=== PATIENT | female | born 1995 | race Hispanic/Latino ===

== ENCOUNTER 2018-08-25 02:29 | Emergency (ER) | payer SELFPAY ==
[2018-08-25] MEDS ORDERED: Sodium Chloride 0.9% 1,000 ML IV ONE ×2 (03:02)
--- NOTE | 2018-08-25 03:04 | C.PDOC ---
History Of Present Illness 23 year old female with PMHx of GERD presents to the ED complaining of new onset of vomiting one hour prior to arrival. Reports she had 5 episodes of vomiting. Denies current . Denies any diarrhea, abdominal pain, fever, chills, back pain, chest pain, shortness of breath, urinary symptoms, or any other complaints. Chief Complaint (Nursing): Abdominal Pain History Per: Patient History/Exam Limitations: no limitations Onset/Duration Of Symptoms: Hrs Current Symptoms Are (Timing): Still Present Associated Symptoms: Vomiting. denies: Fever, Chills, Diarrhea, Back Pain, Chest Pain, Urinary Symptoms Past Medical History Reviewed: Historical Data, Nursing Documentation, Vital Signs Vital Signs: Last Vital Signs Temp 97.5 F L 08/25/18 02:48 Pulse 101 H 08/25/18 02:48 Resp 20 08/25/18 02:48 BP 114/75 08/25/18 02:48 Pulse Ox 100 08/25/18 02:48 - Medical History PMH: GERD Denies: Chronic Kidney Disease Surgical History: No Surg Hx Family History: States: No Known Family Hx - Social History Hx Alcohol Use: No Hx Substance Use: No - Immunization History Hx Tetanus Toxoid Vaccination: No Hx Influenza Vaccination: No Hx Pneumococcal Vaccination: No Review Of Systems Except As Marked, All Systems Reviewed And Found Negative. Constitutional: Negative for: Fever, Chills Cardiovascular: Negative for: Chest Pain Respiratory: Negative for: Shortness of Breath Gastrointestinal: Positive for: Vomiting. Negative for: Nausea, Abdominal Pain, Diarrhea Genitourinary: Negative for: Dysuria, Hematuria Musculoskeletal: Negative for: Back Pain Physical Exam - Physical Exam Appears: Non-toxic, Other (mild distress) Skin: Warm, Dry Head: Normacephalic Eye(s): bilateral: Normal Inspection Nose: Normal Oral Mucosa: Moist Neck: Supple Chest: Symmetrical Cardiovascular: Rhythm Regular Respiratory: Normal Breath Sounds, No Rales, No Rhonchi, No Wheezing Gastrointestinal/Abdominal: Bowel Sounds (normal), Soft, Tenderness (epigastric ), No Distention, No Guarding, No Rebound, No Other (rigidity ) Back: No CVA Tenderness Extremity: Bilateral: Atraumatic Neurological/Psych: Oriented x3, Normal Speech Gait: Steady ED Course And Treatment - Laboratory Results Result Diagrams: 08/25/18 03:09 08/25/18 03:09 O2 Sat by Pulse Oximetry: 100 Medical Decision Making Medical Decision Making: Plan - CT ABD/PEL - Zofran 4mg IVP - Protonix 40mg IVP - IV fluids - UA - Bloodwork Disposition Counseled Patient/Family Regarding: Diagnosis - Disposition Referrals: [facility] [Outside] Disposition: HOME/ ROUTINE Disposition Time: 05:17 Condition: STABLE Prescriptions: Ondansetron ODT [Zofran ODT] 1 odt PO BID PRN #6 odt PRN Reason: Nausea/Vomiting Pantoprazole Sodium [Protonix] 40 mg PO DAILY #14 ect Sucralfate [Carafate] 1 gm PO BID #20 tablet Instructions: Gastritis, Acid Reflux (Gastroesophageal Reflux Disease), Adult (DC), [place] Diet Forms: [facility] (Pashto) - POA Present On Arrival: None - Clinical Impression Clinical Impression: GERD (gastroesophageal reflux disease), Vomiting, Abdominal pain - Scribe Statement The provider has reviewed the documentation as recorded by the Carolina Ball All medical record entries made by the Carolina were at my direction and personally dictated by me. I have reviewed the chart and agree that the record accurately reflects my personal performance of the history, physical exam, medical decision making, and the department course for this patient. I have also personally directed, reviewed, and agree with the discharge instructions and disposition.
[2018-08-25 03:14] LABS: BASO % 0.1 % (0.0-2.0); EOS # 0.2 K/uL (0.0-0.7); EOS % 1.5 % (0.0-4.0); HEMOGLOBIN 13.4 g/dL (11.0-16.0); LYMPH % 7.2 % (20.0-40.0); MEAN CELL VOLUME 87.3 fL (81.0-99.0); MEAN CORPUSCULAR HEMOGLOBIN 28.2 pg (27.0-31.0); MEAN CORPUSCULAR HGB CONC 32.3 g/dL (33.0-37.0); MEAN PLATELET VOLUME 10.4 fL (7.2-11.7); MONO # 0.5 K/uL (0.0-0.8); MONO % 3.9 % (0.0-10.0); NEUT # 11.6 K/uL (1.8-7.0); NEUT % 87.3 % (50.0-75.0); PLATELET COUNT 280 K/uL (130-400); RBC 4.74 Mil/uL (3.80-5.20); RED CELL DISTRIBUTION WIDTH 13.2 % (11.5-14.5); WHITE BLOOD COUNT 13.3 K/uL (4.8-10.8)
[2018-08-25 03:19] LABS: SQUAMOUS EPITHIAL 2 /hpf (0-5); URINE BACTERIA RARE (<OCC); URINE BILIRUBIN NEGATIVE (NEGATIVE); URINE BLOOD 1+ (NEGATIVE); URINE CLARITY Clear (Clear); URINE COLOR Yellow (YELLOW); URINE GLUCOSE (UA) NORMAL (Normal); URINE LEUKOCYTE ESTERASE NEG Leu/uL (Negative); URINE PROTEIN NEGATIVE (NEGATIVE); URINE UROBILINOGEN NORMAL mg/dL (0.2-1.0)
[2018-08-25 03:20] LABS: HCG,QUALITATIVE URINE NEGATIVE (NEGATIVE)
[2018-08-25 03:27] LABS: ALB/GLOB RATIO 1.6 (1.0-2.1); ALBUMIN 4.5 g/dL (3.5-5.0); ALT/SGPT 24 U/L (9-52); AST/SGOT 16 U/L (14-36); BLOOD UREA NITROGEN 12 mg/dL (7-17); CALCIUM 8.8 mg/dl (8.6-10.4); GFR NON-AFRICAN AMERICAN > 60; LIPASE 82 U/L (23-300)
[2018-08-25 03:39] LABS: BANDS 1 % (0-2); EOSINOPHIL 1 % (0-4); LYMPHOCYTE 9 % (20-40); MONOCYTE 4 % (0-10); NEUTROPHIL 85 % (50-75); PLATELET ESTIMATE NORMAL (NORMAL); TOTAL CELLS COUNTED 100
[2018-08-25 05:35] VITALS: BP 90/60; PULSE 94; RESP 22; TEMP 98.8; O2SAT 97
--- NOTE | 2018-08-25 09:52 | CT ---
Date of service: 08/25/2018 PROCEDURE: CT Abdomen and Pelvis with intravenous contrast HISTORY: Abdominal pain. Vomiting. COMPARISON: None. TECHNIQUE: Multiple contiguous axial images were performed through the abdomen and pelvis with the use of intravenous contrast. Subsequently, sagittal and coronal reformatted images were obtained. Radiation dose: Total exam DLP = 545.35 mGy-cm. This CT exam was performed using one or more of the following dose reduction techniques: Automated exposure control, adjustment of the mA and/or kV according to patient size, and/or use of iterative reconstruction technique. FINDINGS: LOWER THORAX: Mild atelectasis at the lung bases. LIVER: Grossly preserved. GALLBLADDER AND BILE DUCTS: Unremarkable. PANCREAS: Unremarkable. No gross lesion or ductal dilatation. SPLEEN: Unremarkable. ADRENALS: Unremarkable. No mass. KIDNEYS AND URETERS: Unremarkable. No hydronephrosis. No solid mass. VASCULATURE: Unremarkable. No aortic aneurysm. No aortic atherosclerotic calcification or mural plaque present. BOWEL: Distended and thickened enhancing bowel loops seen within the upper and mid abdomen suggestive for an enteritis. Fluid-filled and distended stomach. Moderate to severe fecal retention in the colon APPENDIX: Partially imaged. Grossly preserved. PERITONEUM: Unremarkable. No free fluid. No free air. LYMPH NODES: Few shotty para-aortic and inguinal lymph nodes. Few shotty mesenteric lymph nodes. BLADDER: Unremarkable. REPRODUCTIVE: Heterogeneous and prominent uterus and bilateral adnexa. Findings concerning for pelvic congestion syndrome. BONES: Degenerative changes in the spine. OTHER FINDINGS: None. IMPRESSION: 1. Moderate to severe fecal retention in the colon consistent with constipation. 2. Few distended and mildly thickened and enhancing loops of small bowel in the upper and mid small bowel suggestive for an enteritis. 3. Findings concerning for pelvic congestion syndrome. Additional findings as above. A preliminary report was generated at 5:09 a.m. on 08/25/2018 by By Kendall Watts from [employer].
== END 2018-08-25 05:38 | disposition home or self-care (01) ==
LOC: C.ER 02:29
DX: K21.9 Gastro-esophageal reflux disease without esophagitis (principal); R11.10 Vomiting, unspecified; R10.13 Epigastric pain
CPT/HCPCS: 74177; 80053; 81001; 81025; 83690; 84703; 85025; 96374; 96375; 99283; C9113; J2270; J2405; J7030